=== PATIENT | male | born 1980 | race African-American/Black ===

== ENCOUNTER 2023-06-05 00:29 | Emergency (ER) | payer MEDICAID ==
[~2023-06-05] VITALS: Ht 167.6 cm; Wt 72.0 kg
[2023-06-05 00:32] VITALS: BP 118/87; PULSE 79; RESP 18; TEMP 97.4; O2SAT 98
[2023-06-05] MEDS ORDERED: LIDOCAINE HCL 1% 20ML VIAL (Pyxis) INJ INFIL ONE (01:00)
[2023-06-05] MEDS ORDERED: PENI500T MT (01:01)
== END 2023-06-05 02:34 | disposition home or self-care (01) ==
LOC: ER 00:29
DX: S01.511A Laceration without foreign body of lip, initial encounter (principal); V49.49XA Driver injured in collision with other motor vehicles in traffic accident, initial encounter; Y93.89 Activity, other specified; Y92.89 Other specified places as the place of occurrence of the external cause; Y99.8 Other external cause status
CPT/HCPCS: 12011; 99283; J3490; Z7610